=== PATIENT | female | born 1955 | race Caucasian/White ===

== ENCOUNTER 2016-07-21 06:13 | Day surgery (SDC) | payer OTHER ==
[2016-07-21] VITALS (13 sets, daily range): BP systolic 118–157; BP diastolic 78–96; PULSE 74–99; RESP 9–18; O2SAT 92–99
[~2016-07-21] VITALS: Ht 166.4 cm; Wt 96.2 kg
[~2016-07-21 06:13] MED LIST: CHOL100045 PO; Clindamycin 900 mg/50 mL D5W IV ONE; DETROL LA4 M1 PO; Lactated Ringer's 1,000 ML IV SCH
[2016-07-21] MEDS ORDERED: Dexamethasone 4 mg/mL Inj ONE (06:14)
[2016-07-21] MEDS ORDERED: fentaNYL-PF 50 mCg/mL 2 mL Inj ONE (06:14)
[2016-07-21] MEDS ORDERED: Propofol 10,000 mCg/mL 20 mL Inj ONE (06:14)
[2016-07-21] MEDS ORDERED: Lactated Ringer's 1,000 ML IV ONE ×2 (06:28→09:47)
--- NOTE | 2016-07-21 07:47 | PCM.HPANE ---
Patient Data Surgeon Admitting Provider: Attending Provider:Juan J Zapata MD Primary Care Physician:Jody Cabral MD Other Provider:[facility] Reason for Visit Left Breast Reconstruction Deformity, Left Breast Ht/WT & BMI Height (Feet): 5 Height (Inches): 5.50 Weight (Kilograms): 96.162 Body Mass Index 34.00 Allergies Coded Allergies: bupropion (Verified Allergy, Severe, HIVES, 02/17/15) sertraline (Verified Allergy, Severe, hives, 02/17/15) Past Anesthesia History Anesthesia History: Denies:: Anesthesia Reactions, Malignant Hyperthermia Diabetes History Hx Diabetes?: No MRSA MRSA: No Medications Home Meds Incl Beta Marcial: No Reported Medications Cholecalciferol (Vitamin D3) (Vitamin D)1,000 Unit Capsule3,000 Unit PO DAILY # 1 BOTTLE Ref 0 02/17/15 Tolterodine Tartrate ER (Detrol LA)4 Mg Cap.sr.24h2 Mg PO BID 08/29/14 History History of ENT Problems?: Yes Hx of Heart Problems?: No Cardiovascular History: Denies:: Hypertension (HYPERLIPIDEMIA) Hx of Respiratory Problem?: Yes Respiratory History: Positive for:: Use of C-PAP Machine (MICHAELA+ S/P UPPP) Hx Neurologic Problems?: No Hx of GI Problems?: Yes Gastrointestinal History: Denies:: Diverticulitis (DIVERTICULOSIS) Rectal Bleeding (HX OF COLON POLYPS/HEMORRHOIDS) Hx of Problems?: Yes Female Hx: Positive for:: Problems with Breasts? (S/P S/P LT BREAST BX, PARTIAL MASTECTOMY FOR CA LT BREAST CA=CURRENT PROB) Denies:: Currently Skin History: Denies:: History Skin Disorders? 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) Musculoskeletal Trauma (S/P RPR RT FOREARM TENDONS,KNEE SCOPE) Hx of Psycho/Social Problems?: Yes Psycho Social History: Positive for:: Hx Depression (HX OF) Hx Surgeries?: Yes (C/S,, sling,T&A,UVULOPLASTY,BUNION,KNEE SCOPE,RT GREG,ORION,PATRICK) Hx Any Other Health Problems?: Yes Other History: Positive for:: Cancer (LT BREAST) Denies:: Endocrine Disease Hospitalization Thyroid Disease History Blood Transfusions: Denies:: Blood Transfusions Hx Diabetes: No Hx Alcohol Use: Yes (RARELY)Hx Substance Use: No Smoking Status: Former Smoker Unknown if Ever Smoker Have You Smoked inLast 12 mo: No Stop/Bang S-Snoring: Do You Snore Loudly: No T-Tired: feel tired, fatigued: Yes O-Obsered: Observed not breath: No P-Blood Pressure: treated: No B- Body Mass Index > 35 kg/m2: No A- Age over 50: Yes N- Neck Large Circumference: No G- Gender Male: No MICHAELA Total Score: 2 MICHAELA Risk Assessment: Low Risk, <3 Yes Risk Assessment Category Category 1A: Patient has history of documented sleep apnea, and HAS NOT received any narcotic, sedative or anesthesia administration during this stay. Category 1B: Patient has history of documented sleep apnea, and HAS received any narcotic , sedative or anesthesia administration during this stay Category 2: Patient has SUSPECTED Obstructive Sleep Apnea, and HAS received any narcotic , sedative or anesthesia administration during this stay. Category 3: Patient has SUSPECTED Obstructive Sleep Apnea and HAS NOT received narcotic, sedative or anesthesia administration during this stay. Category 4: Outpatient in Procedural Areas with known sleep apnea or who screen positive for High Risk via the STOP/BANG questionnaire. Exam Exam Vital Signs Vital Signs Date Time Temp Pulse Resp B/P Pulse Ox O2 Delivery O2 Flow Rate FiO2 07/21/16 06:34 36.2 90 17 118/86 93 Room Air General Appearance: Alert, Oriented X3, Cooperative, No Acute Distress HEENT/AIRWAY: MP 2 Lungs: Clear to Auscultation, Normal Air Movement Heart: Exam Unremarkable, Regular Rate/Rhythm, No Murmurs/Rubs/Gallops Meds/Labs/Diagnostics Admission Meds Current Medications Lactated Ringer's (Lr) 1,000 ml @ ud STK-MED ONCE IV Last administered on 07/21t 06:28; Start 07/21/16 at 06:28; Stop 07/21/16 at 06:29; Status DC Plan Impression Patient chart reviewed, patient interviewed and anesthestic plan with risks, benefits, and alternatives discussed, and informed consent obtained. NPO Status: 07/20@1930 ASA Physical Status: ASA2 Plus Emergency Anesthetic Plan: GA Bene/Risks/Altern/Consents: Yes HP Complete Prior to Induction: Yes Angela Avila MD Jul 21, 2016 07:47
[2016-07-21] MEDS ORDERED: Lactated Ringer's 1,000 ML IV SCH (08:48)
[2016-07-21] MEDS ORDERED: Lactated Ringer's 500 ML IV PRN (08:48)
[2016-07-21] MEDS ORDERED: Dexamethasone 4 mg/mL Inj IVPUSH PRN (08:50)
[2016-07-21] MEDS ORDERED: MetoCLOpramide 5 mg/mL 2 mL Inj IVPUSH PRN (08:50)
[2016-07-21] MEDS ORDERED: Ondansetron 2 mg/mL 2 mL Inj IVPUSH PRN (08:50)
[2016-07-21] MEDS ORDERED: EPHEDrine Sulfate 50 mg/mL Inj IVPUSH PRN (08:50)
[2016-07-21] MEDS ORDERED: Labetalol 5 mg/mL 4 mL Inj IV PRN (08:50)
[2016-07-21] MEDS ORDERED: hydrALAZINE 20 mg/mL Inj IVPUSH PRN (08:50)
[2016-07-21] MEDS ORDERED: Atropine 0.4 mg/mL Inj IVPUSH PRN (08:50)
[2016-07-21] MEDS ORDERED: Phenylephrine 10,000 mCg/mL Inj IVPUSH PRN (08:50)
[2016-07-21] MEDS ORDERED: Bacitracin 50,000 unit Inj IRRIGATION ONE (08:51)
[2016-07-21] MEDS: fentaNYL-PF 50 mCg/mL 2 mL Inj IVPUSH PRN ×3 (10:05→10:50)
[2016-07-21] MEDS: HYDROmorphone 1 mg/mL Inj IVPUSH PRN ×2 (10:05→10:13)
--- NOTE | 2016-07-21 10:45 | PCM.ANEP1 ---
Post Anesthesia Phase 1 PACU Phase 1 Assessment Vital Signs Vital Signs Date Time Temp Pulse Resp B/P Pulse Ox O2 Delivery O2 Flow Rate FiO2 07/21/16 10:25 78 15 154/95 96 Nasal Cannula 3 07/21/16 10:15 77 10 139/83 95 Nasal Cannula 3 07/21/16 10:10 75 16 140/87 99 Room Air 07/21/16 10:05 75 17 145/81 97 Room Air 07/21/16 10:00 83 18 142/88 98 Simple Mask 9 07/21/16 09:56 36.2 83 16 139/85 99 Simple Mask 9 07/21/16 06:34 36.2 90 17 118/86 93 Room Air Anesthetic Administered: GA Level of Alertness: Awake, talking ZENDEJAS's with Equal Strength: Yes Pain: No Oxygen Delivery: Simple Mask Lungs: Clear to Auscultation, Normal Air Movement Angela Avila MD Jul 21, 2016 10:44
[2016-07-21] MEDS ORDERED: EPHEDrine Sulfate 50 mg/mL Inj IM ONE (10:50)
[2016-07-21] MEDS ORDERED: hydrOXYzine Inj 25 MG/1 mL SDV IM ONE ×2 (10:50→11:06)
[2016-07-21] MEDS: oxyCODONE-Acetamin 5-325 mg Tablet PO PRN ×2 (11:30→11:35)
--- NOTE | 2016-07-21 13:56 | OP ---
[address] [address] OPERATIVE REPORT PATIENT: LEENA PRO : 1955 MR#: [id number] ADMIT: 07/21/2016 JOB ID: [id number] DATE OF SURGERY: 07/21/2016 PREOPERATIVE DIAGNOSIS(ES): 1. History of left breast cancer, status post breast conservation therapy. 2. Breast deformity, status post breast reconstruction. 3. Breast asymmetry, status post breast reconstruction. POSTOPERATIVE DIAGNOSIS(ES): 1. History of left breast cancer, status post breast conservation therapy. 2. Breast deformity, status post breast reconstruction. 3. Breast asymmetry, status post breast reconstruction. PROCEDURE: 1. Revision left breast reconstruction with recontouring of the left periareolar area with placement of AlloDerm for soft tissue augmentation. 2. Left breast reconstruction with tissue fixed route operator placement and AlloDerm placement. SURGEON: Juan J Zapata MD. MEMBER OF THE LEGISLATIVE ASSEMBLY: None. ANESTHESIA: General. ESTIMATED BLOOD LOSS: 20 cc. SPECIMEN: None. IMPLANT: Allergan style 133 MV, 14 cm tissue fixed route operator placed and filled to 100 cc. DRAINS: A #15 round Donta drain x1. INDICATIONS FOR PROCEDURE: This is a 60-year-old female patient with a history of left breast cancer, status post partial mastectomy. Patient has residual deformity in the supraareolar area with indentation and scar tethering. Patient also reports asymmetry between the left breast and the [place] right breast. The patient desires to have a more normal contour of the breast, as well as reconstruction to match the size to the [place] breast. PROCEDURES AND FINDINGS: The patient was identified in the preoperative area. Surgical site was marked. With patient in sitting position, I marked patient's inframammary fold. Desired inframammary incision was also marked. The area of deformity was also marked. Patient was then taken back to the operating room and placed supine on the operating table. Appropriate time-outs were taken. General anesthesia was induced smoothly. Patient was then prepped and draped in the usual sterile manner. I first turned my attention to the supraareolar area. There was an area of indentation at the site of the partial mastectomy. An incision was then designed at the superior periareolar area between approximately the 10 o'clock position and the 2 o'clock position. A larger curvilinear incision was then designed to encompass the area of depression. This curved incision was made to match the curved incision on the superior periareolar area. A lateral dog ear was also marked. Incision was then made along the marked incision. The skin was then de-epithelialized. I then incised through the superior border of the de-epithelialized area down to the underlying soft tissue. I deepened the incision down to the underlying scar. The soft tissue was then freed from the scar. At this point, the de-epithelialized portion of the incision was then tucked down into the defect. A layer of 3-0 Monocryl deep dermal sutures were then placed. At this point, it was noted that the contour had improved. However, the patient continued to have significant depression in this area. At this point, I turned my attention to breast reconstruction and tissue fixed route operator placement. A 6-7 cm inframammary incision was then made approximately half a cm above the inframammary fold. This was done with a #10 blade. Incision was then deepened down to the underlying soft tissue with electrocautery. I then deepened the incision down to the underlying chest wall. I elevated the soft tissue off the chest wall until I encountered the lateral edge of the pectoralis major muscle. I then dissected the lateral edge of the pectoralis muscle off of the chest wall to access the subpectoral plane. I then performed blunt and sharp dissection with my finger and with electrocautery to enter the subpectoral plane. I then divided the costal insertion of the pectoralis major muscle with electrocautery until the sternal edge. Once this had been done, I continued to dissect the subpectoral plane superiorly and laterally until an adequate space was obtained for tissue fixed route operator. Hemostasis was obtained with electrocautery. At this point, a 14 cm Allergan style 133 MV tissue fixed route operator was obtained. Air was removed. The pocket and the tissue fixed route operator were both rinsed with antibiotic solution. The tissue fixed route operator was then placed into the pocket. I then visually made sure that the tissue fixed route operator was completely unfurled and sitting as inferiorly and as medially as possible. At this point, an AlloDerm was opened. I trimmed off an approximately 3 cm x 6 cm piece. The rest of the AlloDerm was then placed into the implant pocket. The AlloDerm was placed in such a way that it provided an additional layer between the tissue fixed route operator and the inframammary incision. It was then secured in place with several 3-0 Vicryl [id number] sutures. A #15 round Donta drain was then placed through a separate lateral stab incision to run along the inframammary fold between the AlloDerm and the soft tissue. A layer of 3-0 Vicryl [id number] sutures were then used to reapproximate the deep fascia and the breast capsule. A layer of 3-0 Monocryl simple interrupted sutures were then used to replace the superficial fascia. The skin was then reapproximated with a layer of 3-0 Monocryl deep dermal suture, followed by 4-0 Monocryl running subcuticular suture. After this had been done, I turned my attention to the superior incision again. I opened up a couple of the 3-0 Monocryl deep dermal sutures. This allowed me to access the scar tissue. I elevated the skin flap mostly in the subareolar area off the underlying scar tissue. The AlloDerm was then placed into this defect to reduced tethering and to provide more soft tissue to improve the contour. Once this had been done, a layer of 3-0 Monocryl deep dermal sutures were then placed, followed by 4-0 Monocryl running subcuticular suture. Skin glue was then applied over both incisions. The tissue fixed route operator was then inflated to 100 cc. The patient tolerated the procedure well. Needle count, sponge count, instrument counts were correct at the end of the procedure. Patient was extubated and transported to recovery in stable condition.
--- NOTE | 2016-07-22 11:08 | PCM.ANEP2 ---
Post Anesthesia Evaluation ASA/CMS Post Anesthesia VS in Patient's Normal Range?: Yes Resp Stable; Airway Patent?: Yes CV Function & Hydration Stable: Yes Mental Status Recovered?: Yes Pain control Satisfactory?: Yes N/V Control Satisfactory?: Yes Angela Avila MD Jul 22, 2016 11:08
== END 2016-07-21 23:59 | disposition home or self-care (01) ==
LOC: SAS 06:13
PROVIDERS: ATTEND Plastic Surgery
DX: N65.0 Deformity of reconstructed breast (principal); N65.1 Disproportion of reconstructed breast; N64.89 Other specified disorders of breast; E78.5 Hyperlipidemia, unspecified; G47.33 Obstructive sleep apnea (adult) (pediatric); F32.9 Major depressive disorder, single episode, unspecified; Z96.641 Presence of right artificial hip joint; Z87.891 Personal history of nicotine dependence; Z86.010 Personal history of colon polyps; Z85.3 Personal history of malignant neoplasm of breast